=== PATIENT | male | born 1970 | race African-American/Black ===

== ENCOUNTER 2019-11-22 16:38 | Emergency (ER) | payer OTHER ==
[~2019-11-22] VITALS: Ht 180.3 cm; Wt 100.0 kg
[~2019-11-22 16:38] MED LIST: ATOR80TA PO; ZET10T PO
[2019-11-22 16:45] VITALS: BP 164/118
[2019-11-22] MEDS ORDERED: HYDROcodone/acetaminophen 5mg/325mg tablet PO ONE (17:50)
[2019-11-22] MEDS ORDERED: HYDR-3965 PO (18:11)
== END 2019-11-22 18:31 | disposition home or self-care (01) ==
LOC: ER 16:38
DX: M25.571 Pain in right ankle and joints of right foot (principal); R22.41 Localized swelling, mass and lump, right lower limb; Z79.899 Other long term (current) drug therapy; X50.1XXA Overexertion from prolonged static or awkward postures, initial encounter; Y93.89 Activity, other specified; Y92.89 Other specified places as the place of occurrence of the external cause; Y99.8 Other external cause status
CPT/HCPCS: 73610; 99283

== ENCOUNTER 2020-09-02 09:09 | Emergency (ER) | payer OTHER ==
[~2020-09-02] VITALS: Ht 180.3 cm; Wt 96.8 kg
[2020-09-02] MEDS ORDERED: morphine 10mg/ml inj. IV ONE (09:30)
[2020-09-02] MEDS ORDERED: normal saline 1000ml 1,000 ML IV ONE (09:30)
[2020-09-02] MEDS ORDERED: ondansetron/PF 4mg/2ml inj IV ONE (09:30)
[2020-09-02 10:02] LABS: BASOPHILS # (AUTO) 0.1 X10'3 (0-0.2); BASOPHILS % (AUTO) 0.5 % (0-1); EOSINOPHILS % (AUTO) 0.3 % (0-6); HEMATOCRIT 45.8 % (42.0-52.0); HEMOGLOBIN 14.9 g/dl (14.0-17.9); LYMPHOCYTES # (AUTO) 0.6 X10'3 (1.1-4.8); LYMPHOCYTES % (AUTO) 4.6 % (21-51); MEAN CORPUSCULAR HEMOGLOBIN 26.8 PG (27.0-31.0); MEAN CORPUSCULAR HGB CONC 32.5 g/dL (33.0-36.5); MEAN CORPUSCULAR VOLUME 82.3 FL (78-98); MEAN PLATELET VOLUME 8.2 FL (7.4-10.4); MONOCYTES # (AUTO) 0.6 X10'3 (0-0.9); MONOCYTES % (AUTO) 4.5 % (2-12); NEUTROPHILS % (AUTO) 90.1 % (42-75); PLATELET COUNT 209 X10'3 (140-440); RED BLOOD COUNT 5.56 X10'6 (4.70-6.10); RED CELL DISTRIBUTION WIDTH 16.3 % (11.5-14.5); WHITE BLOOD COUNT 13.3 X10'3 (4.5-11.0)
[2020-09-02 10:16] LABS: ALANINE AMINOTRANSFERASE 58 U/L (12-78); ALBUMIN 4.1 G/DL (3.4-5.0); ALBUMIN/GLOBULIN RATIO 0.8 (1.1-1.5); ALKALINE PHOSPHATASE 68 IU/L (46-116); ANION GAP 8 (8-16); ASPARTATE AMINO TRANSFERASE 47 U/L (10-37); BILIRUBIN,TOTAL 2.4 MG/DL (0.1-1.0); BLOOD UREA NITROGEN 9 MG/DL (7-18); CALCIUM 10.3 MG/DL (8.5-10.1); CHLORIDE 99 MMOL/L (99-107); CREATININE 0.82 MG/DL (0.60-1.10); GLUCOSE 130 MG/DL (70-104); LIPASE 349 U/L (73-393); POTASSIUM 3.8 MMOL/L (3.5-5.1); SODIUM 137 MMOL/L (135-145); TOTAL CARBON DIOXIDE 30.5 MMOL/L (24-32); eGFR > 90 ML/MIN
[2020-09-02] MEDS ORDERED: iohexol 300mg/ml 100ml inj. ONE (10:32)
[2020-09-02] MEDS ORDERED: famotidine/PF 10 mg/ml inj IV ONE (11:20)
[2020-09-02] MEDS ORDERED: FAMO40TA73 PO (11:23)
[2020-09-02 11:35] LABS: CLARITY,URINE SLIGHTLY CLOUDY (Clear); COLOR,URINE AMBER (Yellow); GLUCOSE, URINE NEGATIVE (Neg); KETONES,URINE 15 mg/dl (Neg); LEUKOCYTE ESTERASE ,URINE NEGATIVE (Neg); NITRITES, URINE NEGATIVE (Neg); OCCULT BLOOD,URINE TRACE-INTACT (Neg); PROTEIN,URINE 30 mg/dl (Neg)
[2020-09-02 11:44] LABS: UA COLLECTION TYPE URINAL
[2020-09-02 11:46] LABS: HYALINE CASTS 0-3 /LPF (NEGATIVE); MUCUS STRANDS MANY /LPF (Neg); SQUAMOUS EPITHELIAL CELL,UR FEW /LPF (FEW)
[2020-09-02 11:47] LABS: RBC,URINE 0-2 /HPF (0-2); WBC,URINE 0-4 /HPF (0-4)
[2020-09-02 11:48] LABS: BACTERIA,URINE FEW /HPF (Neg)
[2020-09-02 11:59] VITALS: BP 168/98
== END 2020-09-02 12:02 | disposition home or self-care (01) ==
LOC: ER 09:10
DX: K29.80 Duodenitis without bleeding (principal); R10.13 Epigastric pain; R63.0 Anorexia; Z79.899 Other long term (current) drug therapy
CPT/HCPCS: 36415; 74177; 80053; 81001; 83690; 85025; 93005; 96361; 96374; 96375; 99285; J2270; J2405; J3490; J7030; Q9967

== ENCOUNTER 2022-02-17 14:42 | Emergency (ER) | payer OTHER ==
[~2022-02-17] VITALS: Ht 177.8 cm; Wt 102.7 kg
[~2022-02-17 14:42] MED LIST changes: +FAMO40TA73 PO
[2022-02-17 16:03] LABS: BASOPHILS % (AUTO) 0.6 % (0-1); EOSINOPHILS # (AUTO) 0.1 X10'3 (0-0.9); EOSINOPHILS % (AUTO) 1.7 % (0-6); HEMATOCRIT 40.4 % (42.0-52.0); LYMPHOCYTES # (AUTO) 1.5 X10'3 (1.1-4.8); LYMPHOCYTES % (AUTO) 27.3 % (21-51); MEAN CORPUSCULAR HEMOGLOBIN 27.6 PG (27.0-31.0); MEAN CORPUSCULAR HGB CONC 32.1 g/dL (33.0-36.5); MEAN PLATELET VOLUME 7.5 FL (7.4-10.4); MONOCYTES # (AUTO) 0.4 X10'3 (0-0.9); MONOCYTES % (AUTO) 6.3 % (2-12); NEUTROPHILS # (AUTO) 3.6 X10'3 (1.8-7.7); NEUTROPHILS % (AUTO) 64.1 % (42-75); PLATELET COUNT 329 X10'3 (140-440); RED BLOOD COUNT 4.69 X10'6 (4.70-6.10); RED CELL DISTRIBUTION WIDTH 21.5 % (11.5-14.5); WHITE BLOOD COUNT 5.6 X10'3 (4.5-11.0)
[2022-02-17 16:12] LABS: ALANINE AMINOTRANSFERASE 43 U/L (12-78); ALBUMIN 4.3 G/DL (3.4-5.0); ALKALINE PHOSPHATASE 52 IU/L (46-116); ANION GAP 13 (8-16); ASPARTATE AMINO TRANSFERASE 46 U/L (10-37); BILIRUBIN,TOTAL 0.8 MG/DL (0.1-1.0); BLOOD UREA NITROGEN 13 MG/DL (7-18); CALCIUM 9.4 MG/DL (8.5-10.1); CHLORIDE 101 MMOL/L (99-107); CREATININE 0.93 MG/DL (0.60-1.10); GLUCOSE 98 MG/DL (70-104); POTASSIUM 3.8 MMOL/L (3.5-5.1); SODIUM 139 MMOL/L (135-145); TOTAL CARBON DIOXIDE 25.3 MMOL/L (24-32); TOTAL PROTEIN 8.7 G/DL (6.4-8.2); eGFR > 90 ML/MIN
[2022-02-17 16:27] LABS: ANISOCYTOSIS 3+; MICROCYTOSIS 1+; PLATELET ESTIMATE NORMAL; POIKILOCYTOSIS FEW; TARGET CELLS FEW
[2022-02-17 17:22] LABS: LIPASE 264 U/L (73-393)
--- NOTE | 2022-02-17 18:23 | NUR ---
Report given to CAROLIN Patel
[2022-02-17 18:36] VITALS: BP 135/84
== END 2022-02-17 19:07 | disposition home or self-care (01) ==
LOC: ER 14:43
DX: R07.9 Chest pain, unspecified (principal); E78.00 Pure hypercholesterolemia, unspecified; Z87.19 Personal history of other diseases of the digestive system
CPT/HCPCS: 36415; 71045; 80053; 83690; 83880; 84484; 85008; 85025; 93005; 99285

== ENCOUNTER 2023-08-03 12:00 | Inpatient (IN) | payer OTHER ==
[~2023-08-03] VITALS: Ht 180.3 cm; Wt 100.0 kg
[2023-08-03] MEDS ORDERED: normal saline 1000ML IV soln IVB ONE (12:30)
[2023-08-03] MEDS ORDERED: pantoprazole 40 MG vial IV ONE (12:30)
[2023-08-03] MEDS ORDERED: pantoprazole 40 MG vial IV SCH (12:30)
[2023-08-03] MEDS ORDERED: HYDROmorphone inj. 0.5 MG/0.5 ML DISP.SYRIN IV STA (13:14)
[2023-08-03 14:00] LABS: BASOPHILS % (AUTO) 0.3 % (0-1); EOSINOPHILS % (AUTO) 0.3 % (0-6); HEMATOCRIT 43.6 % (42.0-52.0); HEMOGLOBIN 14.1 g/dl (14.0-17.9); LYMPHOCYTES # (AUTO) 0.6 X10'3 (1.1-4.8); LYMPHOCYTES % (AUTO) 5.5 % (21-51); MEAN CORPUSCULAR HEMOGLOBIN 28.8 PG (27.0-31.0); MEAN CORPUSCULAR HGB CONC 32.4 g/dL (33.0-36.5); MEAN CORPUSCULAR VOLUME 88.9 FL (78-98); MEAN PLATELET VOLUME 7.5 FL (7.4-10.4); MONOCYTES # (AUTO) 0.3 X10'3 (0-0.9); NEUTROPHILS # (AUTO) 10.2 X10'3 (1.8-7.7); NEUTROPHILS % (AUTO) 90.9 % (42-75); PLATELET COUNT 173 X10'3 (140-440); RED CELL DISTRIBUTION WIDTH 16.3 % (11.5-14.5); WHITE BLOOD COUNT 11.2 X10'3 (4.5-11.0)
[2023-08-03] MEDS ORDERED: magnesium Cl slow-release 64mg tablet PO PRN (14:05)
[2023-08-03] MEDS ORDERED: haloperidol lactate 5mg/ml inj IM PRN (14:05)
[2023-08-03] MEDS ORDERED: HYDROcodone/acetaminophen 5mg/325mg tablet PO PRN (14:05)
[2023-08-03] MEDS ORDERED: acetaminophen 325mg tablet PO PRN (14:05)
[2023-08-03] MEDS ORDERED: potassium Cl 20 mEq SR tablet PO PRN ×2 (14:05)
[2023-08-03] MEDS ORDERED: potassium Cl 40MEQ/1/2NS 520ml 520 ML IV PRN (14:05)
[2023-08-03] MEDS ORDERED: mag hydrox/Alum hydrox/simeth 30ml oral suspension PO PRN (14:05)
[2023-08-03] MEDS ORDERED: magnesium 4gm in 100ml NS 100 ML IV PRN (14:05)
[2023-08-03 14:10] LABS: ALANINE AMINOTRANSFERASE 41 U/L (12-78); ALBUMIN 4.1 G/DL (3.4-5.0); ALKALINE PHOSPHATASE 68 IU/L (46-116); ANION GAP 13 (8-16); ASPARTATE AMINO TRANSFERASE 57 U/L (10-37); BILIRUBIN,TOTAL 2.2 MG/DL (0.1-1.0); BLOOD UREA NITROGEN 12 MG/DL (7-18); BUN/CREATININE RATIO 14.6 (10.0-20.0); CALCIUM 9.3 MG/DL (8.5-10.1); CHLORIDE 95 MMOL/L (99-107); CREATININE 0.82 MG/DL (0.60-1.10); GLUCOSE 132 MG/DL (70-104); POTASSIUM 3.3 MMOL/L (3.5-5.1); SODIUM 131 MMOL/L (135-145); TOTAL CARBON DIOXIDE 23.3 MMOL/L (24-32); TOTAL PROTEIN 8.2 G/DL (6.4-8.2); eCRCL 112 ML/MIN; eGFR > 90 ML/MIN
[2023-08-03 14:24] LABS: LIPASE 306 U/L (16-77)
[2023-08-03 14:34] LABS: ETHANOL < 10 MG/DL (<10)
[2023-08-03] MEDS: HYDROmorphone inj. 0.5 MG/0.5 ML DISP.SYRIN IV PRN ×2 (14:40→18:45)
[2023-08-03 14:52] LABS: BILIRUBIN,URINE SMALL (Neg); CLARITY,URINE CLEAR (Clear); COLOR,URINE AMBER (Yellow); GLUCOSE, URINE NEGATIVE (Neg); KETONES,URINE 40 mg/dl (Neg); LEUKOCYTE ESTERASE ,URINE NEGATIVE (Neg); NITRITES, URINE NEGATIVE (Neg); OCCULT BLOOD,URINE TRACE-INTACT (Neg); PROTEIN,URINE 100 mg/dl (Neg); UA COLLECTION TYPE CLN CATCH MIDSTREAM; UROBILINOGEN,URINE 0.2 E.U/dL (0.2-1.0)
[2023-08-03 14:56] LABS: HEMOGLOBIN A1C 5.9 % (4.5-6.2)
[2023-08-03 14:56] LABS: URINE AMPHETAMINE SCREEN NEGATIVE (Neg); URINE BARBITUATE SCREEN NEGATIVE (Neg); URINE BENZODIAZEPINES SCREEN NEGATIVE (Neg); URINE CANNABINOID SCREEN NEGATIVE (Neg); URINE COCAINE SCREEN NEGATIVE (Neg); URINE METHADONE SCREEN NEGATIVE (Neg); URINE OPIATE SCREEN POSITIVE (Neg); URINE PHENCYCLIDINE SCREEN NEGATIVE (Neg)
[2023-08-03 14:58] LABS: BACTERIA,URINE FEW /HPF (Neg); FINE GRANULAR CAST 0-3 /LPF (NEGATIVE); MUCUS STRANDS MANY /LPF (Neg); RBC,URINE 0-2 /HPF (0-2); SQUAMOUS EPITHELIAL CELL,UR FEW /LPF (FEW); WBC,URINE 0-4 /HPF (0-4)
[2023-08-03] MEDS: normal saline 1000ml 1,000 ML IV SCH (15:28)
[2023-08-03] MEDS: ondansetron/PF 4mg/2ml inj IV PRN (18:45)
[2023-08-03] MEDS: heparin, porcine 5000 units/ml vial SQ SCH (21:15)
[2023-08-03] MEDS: thiamine 100mg/ml 2ml inj. IV SCH (21:15)
[2023-08-03] MEDS: LORazepam 2 mg/ml vial IV PRN (23:15)
[2023-08-04 03:18] LABS: BASOPHILS % (AUTO) 0.1 % (0-1); EOSINOPHILS % (AUTO) 0.1 % (0-6); HEMATOCRIT 44.9 % (42.0-52.0); HEMOGLOBIN 14.6 g/dl (14.0-17.9); LYMPHOCYTES # (AUTO) 0.5 X10'3 (1.1-4.8); LYMPHOCYTES % (AUTO) 4.3 % (21-51); MEAN CORPUSCULAR HEMOGLOBIN 28.8 PG (27.0-31.0); MEAN CORPUSCULAR HGB CONC 32.5 g/dL (33.0-36.5); MEAN CORPUSCULAR VOLUME 88.7 FL (78-98); MEAN PLATELET VOLUME 7.7 FL (7.4-10.4); MONOCYTES # (AUTO) 0.2 X10'3 (0-0.9); MONOCYTES % (AUTO) 1.8 % (2-12); NEUTROPHILS # (AUTO) 10.5 X10'3 (1.8-7.7); NEUTROPHILS % (AUTO) 93.7 % (42-75); PLATELET COUNT 142 X10'3 (140-440); RED BLOOD COUNT 5.07 X10'6 (4.70-6.10); RED CELL DISTRIBUTION WIDTH 16.4 % (11.5-14.5); WHITE BLOOD COUNT 11.2 X10'3 (4.5-11.0)
[2023-08-04 03:37] LABS: ALANINE AMINOTRANSFERASE 38 U/L (12-78); ALBUMIN 3.7 G/DL (3.4-5.0); ALBUMIN/GLOBULIN RATIO 0.8 (1.1-1.5); ALKALINE PHOSPHATASE 63 IU/L (46-116); AMYLASE 266 U/L (25-115); ANION GAP 10 (8-16); ASPARTATE AMINO TRANSFERASE 40 U/L (10-37); BILIRUBIN,TOTAL 2.2 MG/DL (0.1-1.0); BLOOD UREA NITROGEN 7 MG/DL (7-18); BUN/CREATININE RATIO 11.1 (10.0-20.0); CALCIUM 9.4 MG/DL (8.5-10.1); CHLORIDE 97 MMOL/L (99-107); CHOL/HDL RATIO 4.4 (0.00-4.99); CHOLESTEROL 244 MG/DL (0-200); CREATININE 0.63 MG/DL (0.60-1.10); GLUCOSE 136 MG/DL (70-104); HDL CHOLESTEROL 55 MG/DL (35-60); LDL CHOLESTEROL 103 MG/DL (50-100); PHOSPHORUS 2.8 MG/DL (2.3-4.5); SODIUM 131 MMOL/L (135-145); TOTAL CARBON DIOXIDE 24.1 MMOL/L (24-32); TOTAL PROTEIN 8.3 G/DL (6.4-8.2); TRIGLYCERIDES 602 MG/DL (20-135); eCRCL 146 ML/MIN; eGFR > 90 ML/MIN
[2023-08-04 03:49] LABS: LIPASE > 375 U/L (16-77)
[2023-08-04] MEDS: HYDROmorphone inj. 0.5 MG/0.5 ML DISP.SYRIN IV PRN ×2 (05:46→12:41)
[2023-08-04] MEDS: heparin, porcine 5000 units/ml vial SQ SCH ×2 (07:30→20:01)
[2023-08-04] MEDS: multivitamins, therapeutics tablet PO SCH (07:30)
[2023-08-04] MEDS: thiamine 100mg/ml 2ml inj. IV SCH ×3 (08:29→20:05)
[2023-08-04] MEDS: folic acid 1mg/0.2ml inj IV SCH (08:29)
[2023-08-04] MEDS: normal saline 1000ml 1,000 ML IV SCH ×2 (10:44→21:41)
[2023-08-04] MEDS ORDERED: hydrALAZINE 20mg/ml inj. IV PRN (16:15)
[2023-08-04 17:00] VITALS: BP 139/81; PULSE 96; RESP 20; TEMP 98; O2SAT 95
[2023-08-04 17:15] VITALS: RESP 20; O2SAT 95
[2023-08-04] MEDS: famotidine 20mg tablet PO SCH (19:58)
[2023-08-04] MEDS: HYDROcodone/acetaminophen 10/325mg tab PO PRN (19:59)
[2023-08-04 20:00] VITALS: RESP 20; O2SAT 95
[2023-08-04] MEDS ORDERED: famotidine 10mg tablet PO SCH (20:00)
[2023-08-04] MEDS ORDERED: famotidine 20mg tablet PO SCH (20:00)
[2023-08-04] MEDS: LORazepam 2 mg/ml vial IV PRN (20:02)
[2023-08-04 22:00] VITALS: BP 156/88; PULSE 99; RESP 20; TEMP 98.4; O2SAT 99
[2023-08-05] MEDS: normal saline 1000ml 1,000 ML IV SCH ×4 (04:55→20:24)
[2023-08-05 05:55] LABS: BASOPHILS % (AUTO) 0.2 % (0-1); EOSINOPHILS # (AUTO) 0.2 X10'3 (0-0.9); EOSINOPHILS % (AUTO) 2.4 % (0-6); LYMPHOCYTES # (AUTO) 1.1 X10'3 (1.1-4.8); LYMPHOCYTES % (AUTO) 13.9 % (21-51); MEAN CORPUSCULAR HEMOGLOBIN 29.1 PG (27.0-31.0); MEAN CORPUSCULAR HGB CONC 32.4 g/dL (33.0-36.5); MEAN CORPUSCULAR VOLUME 89.6 FL (78-98); MEAN PLATELET VOLUME 8.2 FL (7.4-10.4); MONOCYTES # (AUTO) 0.2 X10'3 (0-0.9); MONOCYTES % (AUTO) 3.1 % (2-12); NEUTROPHILS # (AUTO) 6.4 X10'3 (1.8-7.7); NEUTROPHILS % (AUTO) 80.4 % (42-75); PLATELET COUNT 135 X10'3 (140-440); RED BLOOD COUNT 4.13 X10'6 (4.70-6.10); RED CELL DISTRIBUTION WIDTH 16.1 % (11.5-14.5)
[2023-08-05 06:00] VITALS: BP 137/91; PULSE 94; RESP 20; TEMP 98.7; O2SAT 98
[2023-08-05 06:17] LABS: ALANINE AMINOTRANSFERASE 18 U/L (12-78); ALBUMIN 2.7 G/DL (3.4-5.0); ALBUMIN/GLOBULIN RATIO 0.6 (1.1-1.5); ALKALINE PHOSPHATASE 73 IU/L (46-116); AMYLASE 72 U/L (25-115); ANION GAP 7 (8-16); ASPARTATE AMINO TRANSFERASE 23 U/L (10-37); BILIRUBIN,TOTAL 1.4 MG/DL (0.1-1.0); BLOOD UREA NITROGEN 9 MG/DL (7-18); BUN/CREATININE RATIO 12.9 (10.0-20.0); CHLORIDE 97 MMOL/L (99-107); GLUCOSE 91 MG/DL (70-104); LIPASE 190 U/L (16-77); MAGNESIUM 2.1 MG/DL (1.5-2.4); PHOSPHORUS 2.7 MG/DL (2.3-4.5); POTASSIUM 3.6 MMOL/L (3.5-5.1); SODIUM 130 MMOL/L (135-145); TOTAL CARBON DIOXIDE 25.8 MMOL/L (24-32); TOTAL PROTEIN 7.1 G/DL (6.4-8.2); eCRCL 131 ML/MIN; eGFR > 90 ML/MIN
[2023-08-05 08:00] VITALS: RESP 15; O2SAT 96
[2023-08-05] MEDS: HYDROcodone/acetaminophen 10/325mg tab PO PRN ×3 (08:09→20:25)
[2023-08-05] MEDS: thiamine 100mg/ml 2ml inj. IV SCH ×3 (08:10→20:07)
[2023-08-05] MEDS: multivitamins, therapeutics tablet PO SCH (08:10)
[2023-08-05] MEDS: heparin, porcine 5000 units/ml vial SQ SCH ×2 (08:12→20:07)
[2023-08-05] MEDS: famotidine 20mg tablet PO SCH ×2 (09:52→20:06)
[2023-08-05] MEDS: folic acid 1mg/0.2ml inj IV SCH (09:52)
[2023-08-05 10:00] VITALS: BP 138/79; PULSE 75; RESP 16; TEMP 97.6; O2SAT 99
[2023-08-05 18:00] VITALS: BP 119/86; PULSE 77; RESP 18; TEMP 97.8; O2SAT 98
[2023-08-05 19:35] VITALS: RESP 18; O2SAT 98
[2023-08-05] MEDS: buPROPion SR 150mg tablet PO SCH (20:06)
[2023-08-05] MEDS: ondansetron/PF 4mg/2ml inj IV PRN (20:25)
[2023-08-05] MEDS: LORazepam 2 mg/ml vial IV PRN (20:29)
[2023-08-05 22:00] VITALS: BP 134/84; PULSE 74; RESP 20; TEMP 97.6; O2SAT 98
[2023-08-06 06:00] VITALS: BP 147/96; PULSE 81; RESP 18; TEMP 98.1; O2SAT 96
[2023-08-06] MEDS: normal saline 1000ml 1,000 ML IV SCH ×3 (06:13→21:00)
[2023-08-06 07:02] LABS: BASOPHILS % (AUTO) 0.6 % (0-1); EOSINOPHILS # (AUTO) 0.2 X10'3 (0-0.9); EOSINOPHILS % (AUTO) 3.8 % (0-6); HEMATOCRIT 33.8 % (42.0-52.0); HEMOGLOBIN 10.7 g/dl (14.0-17.9); LYMPHOCYTES # (AUTO) 1.1 X10'3 (1.1-4.8); LYMPHOCYTES % (AUTO) 23.7 % (21-51); MEAN CORPUSCULAR HEMOGLOBIN 28.5 PG (27.0-31.0); MEAN CORPUSCULAR HGB CONC 31.5 g/dL (33.0-36.5); MEAN CORPUSCULAR VOLUME 90.6 FL (78-98); MEAN PLATELET VOLUME 7.8 FL (7.4-10.4); MONOCYTES # (AUTO) 0.2 X10'3 (0-0.9); NEUTROPHILS # (AUTO) 3.1 X10'3 (1.8-7.7); NEUTROPHILS % (AUTO) 66.9 % (42-75); PLATELET COUNT 163 X10'3 (140-440); RED BLOOD COUNT 3.73 X10'6 (4.70-6.10); RED CELL DISTRIBUTION WIDTH 16.4 % (11.5-14.5); WHITE BLOOD COUNT 4.7 X10'3 (4.5-11.0)
[2023-08-06 07:24] LABS: ALANINE AMINOTRANSFERASE 24 U/L (12-78); ALBUMIN 2.5 G/DL (3.4-5.0); ALBUMIN/GLOBULIN RATIO 0.6 (1.1-1.5); ALKALINE PHOSPHATASE 73 IU/L (46-116); AMYLASE 51 U/L (25-115); ANION GAP 6 (8-16); ASPARTATE AMINO TRANSFERASE 33 U/L (10-37); BILIRUBIN,TOTAL 0.6 MG/DL (0.1-1.0); BLOOD UREA NITROGEN 7 MG/DL (7-18); BUN/CREATININE RATIO 8.5 (10.0-20.0); CALCIUM 8.8 MG/DL (8.5-10.1); CHLORIDE 101 MMOL/L (99-107); CREATININE 0.82 MG/DL (0.60-1.10); GLUCOSE 96 MG/DL (70-104); LIPASE 167 U/L (16-77); MAGNESIUM 2.1 MG/DL (1.5-2.4); PHOSPHORUS 2.9 MG/DL (2.3-4.5); POTASSIUM 3.5 MMOL/L (3.5-5.1); SODIUM 134 MMOL/L (135-145); TOTAL CARBON DIOXIDE 26.7 MMOL/L (24-32); TOTAL PROTEIN 6.7 G/DL (6.4-8.2); eCRCL 112 ML/MIN; eGFR > 90 ML/MIN
[2023-08-06] MEDS: heparin, porcine 5000 units/ml vial SQ SCH ×2 (07:58→21:09)
[2023-08-06] MEDS: multivitamins, therapeutics tablet PO SCH (07:58)
[2023-08-06] MEDS: buPROPion SR 150mg tablet PO SCH ×2 (07:58→21:02)
[2023-08-06] MEDS: thiamine 100mg/ml 2ml inj. IV SCH ×2 (07:58→18:47)
[2023-08-06] MEDS: famotidine 20mg tablet PO SCH ×2 (07:58→20:00)
[2023-08-06] MEDS: folic acid 1mg/0.2ml inj IV SCH (07:59)
[2023-08-06] MEDS: HYDROcodone/acetaminophen 10/325mg tab PO PRN (07:59)
[2023-08-06 08:00] VITALS: RESP 17; O2SAT 97
[2023-08-06] MEDS: naltrexone 50mg tablet PO SCH (08:12)
[2023-08-06 10:00] VITALS: BP 149/87; PULSE 79; RESP 14; TEMP 98.5; O2SAT 97
[2023-08-06 13:48] LABS: HBSAG SCREEN Negative (Negative); HEP A AB, IGM Negative (Negative); HEP B CORE AB, IGM Negative (Negative); HEPATITIS C VIRUS ANTIBODY Non Reactive (Non Reactive)
[2023-08-06 18:00] VITALS: BP 144/91; PULSE 88; RESP 18; TEMP 99.4; O2SAT 97
[2023-08-06 20:00] VITALS: RESP 18; O2SAT 97
[2023-08-06] MEDS: ondansetron/PF 4mg/2ml inj IV PRN (21:03)
[2023-08-06 22:00] VITALS: BP 147/94; PULSE 61; RESP 18; TEMP 98.5; O2SAT 95
[2023-08-07] MEDS: normal saline 1000ml 1,000 ML IV SCH (02:13)
[2023-08-07 06:49] VITALS: BP 153/89; PULSE 81; RESP 16; TEMP 98.9; O2SAT 96
[2023-08-07 07:02] LABS: BASOPHILS % (AUTO) 0.5 % (0-1); EOSINOPHILS # (AUTO) 0.1 X10'3 (0-0.9); EOSINOPHILS % (AUTO) 3.2 % (0-6); HEMOGLOBIN 11.6 g/dl (14.0-17.9); LYMPHOCYTES # (AUTO) 1.3 X10'3 (1.1-4.8); LYMPHOCYTES % (AUTO) 28.2 % (21-51); MEAN CORPUSCULAR HEMOGLOBIN 28.8 PG (27.0-31.0); MEAN CORPUSCULAR HGB CONC 32.3 g/dL (33.0-36.5); MEAN CORPUSCULAR VOLUME 89.2 FL (78-98); MEAN PLATELET VOLUME 7.8 FL (7.4-10.4); MONOCYTES # (AUTO) 0.3 X10'3 (0-0.9); MONOCYTES % (AUTO) 7.3 % (2-12); NEUTROPHILS # (AUTO) 2.7 X10'3 (1.8-7.7); NEUTROPHILS % (AUTO) 60.8 % (42-75); PLATELET COUNT 185 X10'3 (140-440); RED BLOOD COUNT 4.03 X10'6 (4.70-6.10); RED CELL DISTRIBUTION WIDTH 16.5 % (11.5-14.5); WHITE BLOOD COUNT 4.4 X10'3 (4.5-11.0)
[2023-08-07 07:10] LABS: ALANINE AMINOTRANSFERASE 44 U/L (12-78); ALBUMIN 3.1 G/DL (3.4-5.0); ALBUMIN/GLOBULIN RATIO 0.6 (1.1-1.5); ALKALINE PHOSPHATASE 123 IU/L (46-116); AMYLASE 65 U/L (25-115); ANION GAP 12 (8-16); ASPARTATE AMINO TRANSFERASE 56 U/L (10-37); BILIRUBIN,TOTAL 0.6 MG/DL (0.1-1.0); BLOOD UREA NITROGEN 4 MG/DL (7-18); BUN/CREATININE RATIO 5.6 (10.0-20.0); CALCIUM 9.4 MG/DL (8.5-10.1); CHLORIDE 101 MMOL/L (99-107); CREATININE 0.71 MG/DL (0.60-1.10); GLUCOSE 95 MG/DL (70-104); LIPASE 227 U/L (16-77); MAGNESIUM 2.1 MG/DL (1.5-2.4); PHOSPHORUS 3.4 MG/DL (2.3-4.5); POTASSIUM 3.4 MMOL/L (3.5-5.1); SODIUM 135 MMOL/L (135-145); TOTAL CARBON DIOXIDE 22.5 MMOL/L (24-32); TOTAL PROTEIN 7.9 G/DL (6.4-8.2); eCRCL 130 ML/MIN; eGFR > 90 ML/MIN
[2023-08-07 08:00] VITALS: RESP 16; O2SAT 98
[2023-08-07] MEDS: heparin, porcine 5000 units/ml vial SQ SCH (08:00)
[2023-08-07] MEDS ORDERED: NALT50TA PO (08:07)
[2023-08-07] MEDS ORDERED: CHLO25TA10 PO (08:07)
[2023-08-07] MEDS ORDERED: MULT-25 PO (08:07)
[2023-08-07] MEDS ORDERED: ATOR10TA70 PO (08:07)
[2023-08-07] MEDS ORDERED: BUPR-72 PO (08:07)
[2023-08-07] MEDS: buPROPion SR 150mg tablet PO SCH (08:49)
[2023-08-07] MEDS: multivitamins, therapeutics tablet PO SCH (08:49)
[2023-08-07] MEDS: famotidine 20mg tablet PO SCH (08:49)
[2023-08-07] MEDS: naltrexone 50mg tablet PO SCH (08:49)
[2023-08-07] MEDS ORDERED: potassium Cl 20 mEq SR tablet PO STA (08:54)
== END 2023-08-07 10:05 | disposition home or self-care (01) | DRG 439 ==
LOC: ER 12:00 → ED HOLD 14:21 → EDBEDREQ 08-04 15:15 → ORTHO 4S 08-04 16:44 → UNDODISIN 08-07 10:05
PROVIDERS: ADMIT Family Medicine; ATTEND Family Medicine
DX: K85.20 Alcohol induced acute pancreatitis without necrosis or infection (principal); E87.1 Hypo-osmolality and hyponatremia; E87.6 Hypokalemia; E78.00 Pure hypercholesterolemia, unspecified; F10.20 Alcohol dependence, uncomplicated; E86.0 Dehydration; K76.0 Fatty (change of) liver, not elsewhere classified; G47.30 Sleep apnea, unspecified; D72.829 Elevated white blood cell count, unspecified; R74.01 Elevation of levels of liver transaminase levels; R03.0 Elevated blood-pressure reading, without diagnosis of hypertension; F43.10 Post-traumatic stress disorder, unspecified; Z79.899 Other long term (current) drug therapy; Z82.49 Family history of ischemic heart disease and other diseases of the circulatory system
CPT/HCPCS: 36415; 74150; 80053; 80061; 80074; 80305; 80320; 81001; 82150; 83036; 83690; 83735; 84100; 85025; 87081; 94660; 94760; 96374; 96375; 99285; C1758; C9113; G0378; J1170; J1644; J2060; J2405; J3411; J3480; J3490; J7030

== ENCOUNTER 2023-08-09 13:31 | Emergency (ER) | payer OTHER ==
[~2023-08-09] VITALS: Ht 180.3 cm; Wt 92.5 kg
[~2023-08-09 13:31] MED LIST changes: +ATOR10TA70 PO; -ATOR80TA PO; +BUPR-72 PO; +CHLO25TA10 PO; +MULT-25 PO; +NALT50TA PO; -ZET10T PO
[2023-08-09 13:33] VITALS: BP 136/86; PULSE 73; RESP 15; TEMP 97.1; O2SAT 98
== END 2023-08-09 13:52 | disposition home or self-care (01) ==
LOC: ER 13:32
DX: Z00.8 Encounter for other general examination (principal); E78.00 Pure hypercholesterolemia, unspecified; Z79.899 Other long term (current) drug therapy
CPT/HCPCS: 99281